=== PATIENT | female | born 1975 | race Two or more races ===

== ENCOUNTER 2016-10-13 10:01 | Emergency (ER) | payer SELFPAY ==
[~2016-10-13] VITALS: Ht 162.6 cm; Wt 91.0 kg
[2016-10-13] MEDS ORDERED: IBUPROFEN 600MG TABLET PO ONE (11:15)
[2016-10-13 11:34] LABS: BASOPHILS % 0.4 % (0.0-2.0); EOSINOPHILS % 0.9 % (0.0-5.0); HEMATOCRIT. 34.6 % (36.0-48.0); HEMOGLOBIN. 11.2 g/dL (12.0-16.0); LYMPHOCYTES % 14.8 % (20.0-50.0); MEAN CORPUSCULAR HEMOGLOBIN 22.5 pg (28.0-32.0); MEAN CORPUSCULAR VOLUME 69.6 fL (81.0-99.0); MEAN PLATELET VOLUME 7.4 fl (7.4-10.4); MONOCYTES % 12.6 % (2.0-8.0); NEUTROPHILS % 71.3 % (40.0-76.0); PLATELET 281 x1000/uL (130-400); RED BLOOD CELL COUNT 4.97 mill/uL (4.2-5.4); RED CELL DISTRIBUTION WIDTH 16.2 % (11.6-14.6)
[2016-10-13 11:47] LABS: CARBON DIOXIDE 25 mEq/L (21-32); CHLORIDE 103 mEq/L (98-107)
[2016-10-13 12:17] LABS: PLATELET ESTIMATE NORMAL
[2016-10-13 17:05] VITALS: BP 118/62
== END 2016-10-13 17:15 | disposition home or self-care (01) ==
LOC: ER 13:11
DX: J06.9 Acute upper respiratory infection, unspecified (principal); R51 Headache; E11.65 Type 2 diabetes mellitus with hyperglycemia; D64.9 Anemia, unspecified; R00.0 Tachycardia, unspecified; Z79.899 Other long term (current) drug therapy
CPT/HCPCS: 36415; 71010; 80053; 81025; 82962; 85025; 87207; 93005; 99285; Z7610

== ENCOUNTER 2021-11-19 14:09 | Emergency (ER) | payer MEDICAID ==
[~2021-11-19] VITALS: Ht 162.6 cm; Wt 73.0 kg
[2021-11-19] MEDS ORDERED: SODIUM CHLORIDE 0.9% 1,000 ML IV ONE (15:00)
[2021-11-19] MEDS ORDERED: ACETAMINOPHEN 325MG TABLET PO ONE (15:00)
[2021-11-19] MEDS ORDERED: ACETAMINOPHEN 325MG TABLET PO NR (17:30)
[2021-11-19 17:42] LABS: HEMOGLOBIN. 10.9 g/dL (12.0-16.0); MEAN CORPUSCULAR HEMOGLOBIN 21.1 pg (28.0-32.0); MEAN PLATELET VOLUME 7.2 fl (7.4-10.4); PLATELET 446 x1000/uL (130-400); RED BLOOD CELL COUNT 5.15 mill/uL (4.2-5.4); RED CELL DISTRIBUTION WIDTH 19.2 % (11.6-14.6)
[2021-11-19 17:46] LABS: CLARITY URINE CLEAR (CLEAR); COLOR URINE YELLOW (YELLOW); KETONES URINE TRACE (NEGATIVE); LEUKOCYTE ESTERASE URINE NEGATIVE (NEGATIVE); NITRITE URINE NEGATIVE (NEGATIVE); OCCULT BLOOD URINE NEGATIVE (NEGATIVE); PH URINE 6.5 (4.5-8.0); PROTEIN URINE NEGATIVE (NEGATIVE); SPECIFIC GRAVITY URINE 1.028 (1.005-1.030); UROBILINOGEN URINE 0.2 E.U./dL (0.2-1.0)
[2021-11-19 17:50] LABS: PROTHROMBIN TIME 10.7 sec (9.6-11.0)
[2021-11-19 17:54] LABS: CHLORIDE 102 mEq/L (98-107)
[2021-11-19 17:55] LABS: HCG SCREEN NEGATIVE
[2021-11-19 18:05] LABS: ETHANOL BLOOD < 10 mg/dL
[2021-11-19 18:06] LABS: PLATELET ESTIMATE INCREASED
[2021-11-19] MEDS ORDERED: KETOROLAC 30MG/ML VIAL IV ONE (18:15)
[2021-11-19 18:27] LABS: *AMPHETAMINES SCREEN URINE NEGATIVE (NEGATIVE); *BARBITURATES SCREEN URINE NEGATIVE (NEGATIVE); *BENZODIAZEPINES SCREEN URINE NEGATIVE (NEGATIVE); *COCAINE SCREEN URINE NEGATIVE (NEGATIVE); CANNABINOID URINE SCREEN NEGATIVE (NEGATIVE); METHADONE URINE SCREEN NEGATIVE (NEGATIVE); OPIATES URINE SCREEN NEGATIVE (NEGATIVE); PHENCYCLIDINE URINE SCREEN NEGATIVE (NEGATIVE)
[2021-11-19 19:55] VITALS: BP 125/79
== END 2021-11-19 19:56 | disposition home or self-care (01) ==
LOC: ER 14:47
DX: E10.65 Type 1 diabetes mellitus with hyperglycemia (principal); R42 Dizziness and giddiness; M25.562 Pain in left knee; Z79.4 Long term (current) use of insulin; V43.52XA Car driver injured in collision with other type car in traffic accident, initial encounter; Y93.89 Activity, other specified; Y92.481 Parking lot as the place of occurrence of the external cause
CPT/HCPCS: 36415; 70450; 71045; 73562; 80053; 80305; 80320; 81003; 82962; 83690; 83880; 84484; 84703; 85025; 85610; 93005; 96361; 96374; 99285; J1885; G0480